=== PATIENT | female | born 1970 | race African-American/Black ===

== ENCOUNTER → 2018-07-31 | Outpatient (REF) | payer BC ==
[~2018-07-31] MED LIST: (None)3.5 GM OP; ACETAMIN325 MG PO; ALLEGRA-D 2424 HOUR PO; AMBIEN5 MG PO; AMOXICILLIN/CL250 MG PO; AUGMENTIN500TAB PO; CIPRO500 MG OR; CIPROFLOXACN500 MG PO; FLAGYL500 MG PO; FLEXERIL PO; FLEXERIL10 MG PO; FLONASE0.05 %; GENTAMICIN15 ML/BTL OP; HYDROCHLOROT25 MG PO; HYDROCO/APAP1 T10 PO; K-TABS10 MEQ PO; LASIX20 MG PO; LORTAB 7.5 PO; MEDDOSEPAK PO; MEDROL DOSEPAK4 MG PO; MELOXICAM15 MG PO; MOTRIN600 MG/TAB PO; MOTRIN800 MG/TAB PO; MUCINEX600 MG PO; NAPROSYN500 MG PO; PERCOCET 5/325M1 TAB PO; PERI-COLACE1 TAB PO; PREVACID15 M2 PO; PRILOSEC20 MG/CAP PO; PROAIR HFA IN; PYRIDIUM200 MG OR; TESSALON PER100 MG PO; VENTOLIN HFA IN; ZPAK PO
== END | disposition home or self-care (01) | DRG 392 ==
LOC: ULTRASND 10:38
PROVIDERS: ATTEND Internal Medicine Geriatric Medicine
DX: R10.9 Unspecified abdominal pain (principal)